=== PATIENT | male | born 1995 | race Caucasian/White ===

== ENCOUNTER 2020-05-28 14:39 | Emergency (ER) | payer OTHER, SELFPAY ==
[2020-05-28 14:42] VITALS: BP 142/73; PULSE 58; RESP 18; TEMP 36.7; O2SAT 98; BMI 28.8
--- NOTE | 2020-05-28 14:55 | USR_ITS ---
PROCEDURE INFORMATION: Exam: US Scrotum Exam date and time: 05/28/2020 2:56 PM Age: 24 years old Clinical indication: Scrotum pain; Additional info: Left testicular pain TECHNIQUE: Imaging protocol: Real-time ultrasound of the scrotum and contents with color Doppler and image documentation. COMPARISON: No relevant prior studies available. FINDINGS: Right testicle: Normal. No mass. No torsion. Normal vascular flow. Left testicle: Normal. No mass. No torsion. Normal vascular flow. Epididymides: 2 mm right epididymal head cyst. Scrotum: 3 mm left scrotal varicocele. US/US scrotum [id number] IMPRESSION: 1. There is a 3 mm left scrotal varicocele. 2. 2 mm right epididymal head cyst.
--- NOTE | 2020-05-28 15:00 | W.ED.ABDPA2 ---
HPI - Abdominal Pain General: Chief Complaint: Abdominal Pain Stated Complaint: abd pain Time Seen by Provider: 05/28/20 14:43 Source: patient History of Present Illness: HPI narrative: 24-year-old pleasant male patient presents to the emergency department with less than 2-hour onset of lower abdominal pain followed by testicular pain. He reports went to urgent care who was then referred here for further evaluation. He presents to the emergency department with his father. He denies fever chills, cough congestion. Denies nausea vomiting. He reports spontaneous onset of lower abdominal pain and testicular pain, described pain as intense. Has improved upon arrival to the ED, reports pain localized to the left testicle. He denies flank pain. Denies back pain. Denies urinary discharge or dysuria symptoms. MD elicited complaint: abdominal pain (Lower, now resolved) and other (Testicular pain) Pertinent past history: none Onset (ago): hour(s) (2) Pain Consistency: intermittent Location: Pelvis, Groin and Other (Testicular) Severity: moderate Quality: aching Radiation: suprapubic and other (Testicular) Exacerbating factors: movement Relieving factors: nothing and other (Testicular elevation, sitting down) Context: foreign travel Associated Symptoms: Denies chills, dysuria, fever(s), nausea and vomiting Review of Systems General: Reports: 10 or more systems reviewed and unremarkable except in HPI and below Const: Denies: fever(s) or chills Eyes: Denies: blurry vision or eye redness ENMT: Denies: throat pain, dental pain or disequilibrium Card: Denies: chest pain, palpitations or irregular heart rhythm Resp: Denies: dyspnea, productive cough, non-productive cough or wheezing GI: Reports: abdominal pain; Denies: nausea or vomiting : Reports: testicular pain and scrotal swelling; Denies: difficulty urinating, dysuria or urinary urgency Musc: Denies: back pain Skin/Breast: Denies: rash or pruritus Neuro: Denies: headache(s), weakness in extremities or behavioral changes Phil/Lymph: Denies: easy bruising PFSH ED PFSH: Social History Smoking and tobacco status: current every day smoker Physical Exam Const: COMMON NORMALS: no acute distress, patient oriented x3, healthy appearing and alert GENERAL APPEARANCE: cooperative, comfortable and well hydrated HENMT: COMMON NORMALS: normocephalic, Normal external nose present and moist oral mucous membranes HEAD & SCALP: normocephalic NOSE: Normal external nose present Eye: COMMON NORMALS: Equal, round and reactive pupils present and EOMs intact bilaterally GENERAL EYE: appearance normal, both eyes and all related structures PUPIL: Yes Equal, round and reactive pupils present Neck/C-Spine: COMMON NORMALS: full ROM and no lymphadenopathy GENERAL: Yes normal visual inspection and Yes trachea midline CERVICAL SPINE: Yes cervical ROM normal Lymph: LYMPHATIC: no lymphadenopathy noted Chest: COMMONS NORMALS: normal inspection of the chest Resp: COMMON NORMALS: normal respiratory effort and clear to auscultation bilaterally AUSCULTATION: clear to auscultation bilaterally Cardio: COMMON NORMALS: regular rhythm, S1 normal heart sound present, S2 normal heart sound present and Peripheral pulses 2+ throughout RHYTHM: regular rhythm HEART SOUNDS: S1 normal heart sound present and S2 normal heart sound present PERIPHERAL PULSES: Peripheral pulses 2+ throughout GI: COMMON NORMALS: Normal to inspection, nondistended, normoactive bowel sounds present and non-tender : COMMON NORMALS: Yes no CVA tenderness BLADDER/KIDNEY EXAM: Yes no CVA tenderness MALE GROIN/PERINEUM EXAM: No ecchymosis, No edema and No inguinal lymphadenopathy PENIS: normal penis, circumcised and no ecchymosis MEATUS: meatus normal, no meatla discharge and No Blood at meatus present SCROTUM: Yes testes descended bilaterally, Yes Scrotal tenderness present (Left testicle) and Yes scrotal swelling (Slightly) Scrotal swelling laterality: left TESTES: Yes testicular lie normal Back/Pelvis: COMMON NORMALS: no CVA tenderness and thoracic and lumbar spine normal to inspection Extremity: COMMON NORMALS: normal to inspection and capillary refill normal Neuro: COMMON NORMALS: patient oriented x3 and no focal motor deficits SENSORIUM/ORIENTATION: Yes alert Psych: COMMON NORMALS: mental status grossly normal, Normal thought process present and cooperative ACTIVITY/MOTOR BEHAVIOR: Yes appropriate eye contact THOUGHT PROCESS: Normal thought process present Skin: COMMON NORMALS: no rashes or lesions noted and turgor normal GENERAL SKIN EXAM: no rashes or lesions noted and turgor normal Course ED course: 24-year-old male patient presents to the emergency department with complaints of lower abdominal pain with sudden onset followed by left testicular pain. Scrotal ultrasound revealed 3 mm left scrotal varicocele with 2 mm right epididymal head cyst. CT of the abdomen without IV contrast completed due to elevation of creatinine and inability to rule out renal stone. CT of the abdomen and pelvis with colonic constipation, family and patient updated on CT scan and plan of care, agree to follow-up with primary care physician this week. Review of radiological and serology findings discussed. Vital Signs: Vital signs: Vital Signs Temperature 98.0 F 05/28/20 14:42 Pulse Rate 59 L 05/28/20 15:03 Respiratory Rate 16 05/28/20 15:03 Blood Pressure 143/72 05/28/20 15:03 Pulse Oximetry 97 05/28/20 15:03 MDM - Abdominal Pain Differential Diagnosis: Differential diagnosis abdominal pain: Likely abdominal pain, acute appendicitis and calculus of kidney Lab Data: Labs: Lab Results 05/28/20 05/28/20 05/28/20 Range/Units 15:00 15:00 16:00 WBC 9.1 (4.0-10.0) 10^3/ uL RBC 4.65 (4.1-5.3) 10^6/u L Hgb 14.5 (11.7-16.6) g/dL Hct 43.1 (42.0-52.0) % MCV 92.7 (80-94) fL MCH 31.2 (28.0-34.0) pg MCHC 33.6 (30.0-36.0) g/dL RDW 12.2 (12.1-15.1) % Plt Count 279 (130-400) 10^3/c mm MPV 10.1 (7.4-10.4) fL Neut % (Auto) 53.4 % Lymph % (Auto) 37.6 % Dewitt % (Auto) 7.6 % Eos % (Auto) 0.8 % Baso % (Auto) 0.4 % Neut # (Auto) 4.85 (1.8-7.7) 10^3/u L Lymph # (Auto) 3.4 (0.8-4.8) 10^3/u L Dewitt # (Auto) 0.7 (0.2-0.9) 10^3/u L Eos # (Auto) 0.1 (0.0-0.8) 10^3/u L Baso # (Auto) 0.0 (0.0-0.1) 10^3/u L Nucleated RBC % (a uto) 0 % Nucleated RBCs # 0.0 /100WBC Sodium 139 (136-145) mmol/L Potassium 4.6 (3.5-5.1) mmol/L Chloride 105 (98-107) mmol/L Carbon Dioxide 27 (22-29) mmol/L Anion Gap 11.6 (5-19) BUN 14 (6-20) mg/dL Creatinine 1.3 H (0.7-1.2) mg/dL GFR Calculation 69.0 L (90-130) mL/min Glucose 99 (65-115) mg/dL Calculated Osmolal ity 284 L (285-295) mOsm/k g Calcium 9.2 (8.5-10.5) mg/dL Total Bilirubin 0.5 (0.15-1.2) mg/dL AST 49 H (0-40) U/L ALT 43 H (0-41) U/L Alkaline Phosphata se 71 (40-130) IU/L Total Protein 6.9 (6.6-8.7) g/dL Albumin 4.2 (3.5-5.2) g/dL Globulin 2.7 (1.3-4.6) g/dL Urine Color Dark yellow (Yellow) Urine Appearance Clear (CLEAR) Urine pH 5 (5-7) Ur Specific Gravit y 1.025 (1.005-1.030) Urine Protein Neg (Negative) Urine Glucose (UA) Norm (Normal) Urine Ketones 1+ H (Negative) Urine Blood Neg (Negative) Urine Nitrate Negative (Negative) Urine Bilirubin Neg (NEGATIVE) Urine Urobilinogen 1 H (Negative) mg/dL Ur Leukocyte Blanca ase Negative (Negative) Imaging Data ^: US: Radiologist's impression: [place] [address] Ultrasound Report Signed Patient: Regino Ayala #: [id number] : 1995Acct#:[id number] Age/Sex: 24 / MADM Date: 05/28/20 Loc: ERRoom/Bed: Attending Dr: Ordering Provider/Ordering MD: Jaclyn Phelps Date of Service: 05/28/20 Procedure(s): US scrotum [id number] Accession Number(s): [id number] Report Number: [id number] PROCEDURE INFORMATION: Exam: US Scrotum Exam date and time: 05/28/2020 2:56 PM Age: 24 years old Clinical indication: Scrotum pain; Additional info: Left testicular pain TECHNIQUE: Imaging protocol: Real-time ultrasound of the scrotum and contents with color Doppler and image documentation. COMPARISON: No relevant prior studies available. FINDINGS: Right testicle: Normal. No mass. No torsion. Normal vascular flow. Left testicle: Normal. No mass. No torsion. Normal vascular flow. Epididymides: 2 mm right epididymal head cyst. Scrotum: 3 mm left scrotal varicocele. US/US scrotum [id number] IMPRESSION: 1. There is a 3 mm left scrotal varicocele. 2. 2 mm right epididymal head cyst. Dictated By:Carolina Goss MD CT Abd/Pel: Radiologist's impression: [place] [address] CT Scan Report Signed Patient: Regino Ayala #: [id number] : 1995Acct#:[id number] Age/Sex: 24 MAD Date: 05/28/20 Loc: ERRoom/Bed: Attending Dr: Ordering Provider/Ordering MD: Jaclyn Phelps Date of Service: 05/28/20 Procedure(s): CT kidney stone [id number] Accession Number(s): [id number] Report Number: [id number] PROCEDURE INFORMATION: Exam: CT Abdomen And Pelvis Without Contrast Exam date and time: 05/28/2020 4:13 PM Age: 24 years old Clinical indication: Abdominal pain; Left lower quadrant (llq); Patient HX: C/O lower L flank and suprapubic pain; Additional info: Lower abdominal pain TECHNIQUE: Imaging protocol: Computed tomography of the abdomen and pelvis without contrast. Radiation optimization: All CT scans at this facility use at least one of these dose optimization techniques: automated exposure control; mA and/or kV adjustment per patient size (includes targeted exams where dose is matched to clinical indication); or iterative reconstruction. COMPARISON: No relevant prior studies available. RADIATION DOSE METRICS: Total DLP (mGy-cm): 1465.52 FINDINGS: Liver: Normal. No mass. Gallbladder and bile ducts: The gallbladder is contracted. Pancreas: Normal. No ductal dilation. Spleen: Small incidental splenule. Adrenals: Normal. No mass. Kidneys and ureters: Normal. No hydronephrosis. Stomach and bowel: Colonic constipation is present. Appendix: A normal appendix is identified. Intraperitoneal space: Unremarkable. No free air. No significant fluid collection. Vasculature: Unremarkable. No abdominal aortic aneurysm. Lymph nodes: Unremarkable. No enlarged lymph nodes. Bladder: Unremarkable as visualized. Reproductive: Unremarkable as visualized. Bones/joints: Unremarkable. No acute fracture. Soft tissues: Unremarkable. CT/CT kidney stone [id number] IMPRESSION: Colonic constipation is present. Discharge Plan Discharge Patient Disposition: Home Clinical Impression: Left varicocele, Epidermoid cyst of testis Condition: Stable Prescriptions: No Action No Known Home Medications RF: 0 Discharge Orders: Discharge Order (Routine); Ordered 05/28/20 Ordered By: Jaclyn Phelps Referrals: Eyad Todd DO [Primary Care Provider] - Discharge Diet: Usual diet Discharge Activity: Limit activity as instructed Patient Instructions: Varicocele (ED), Testicle Pain (ED), Abdominal Pain (ED) Activity Restrictions/Additional Instructions: May take ibuprofen such as Advil or Tylenol [id number] as needed for discomfort Wearing tight underwear or athletic support such as jockstrap may help to support the scrotum and help pain If pain has not improved over the next several days with conservative therapy, referral to a specialist may be warranted Follow-up with your primary care provider this week Return to the emergency department if you develop worsening testicular pain, nausea vomiting, worsening abdominal pain with fever and chills, blood in your stool. Coding Level of Care Code ED [employer] for [employer] Fwd Exam Comprehensive
[2020-05-28 15:03] VITALS: BP 143/72; PULSE 59; RESP 16; O2SAT 97
[2020-05-28 15:11] LABS: Basophils % 0.4 %; Eosinophils # 0.1 10^3/uL (0.0-0.8); Eosinophils % 0.8 %; Hematocrit 43.1 % (42.0-52.0); Hemoglobin 14.5 g/dL (11.7-16.6); Lymphocytes # 3.4 10^3/uL (0.8-4.8); Lymphocytes % 37.6 %; Mean Corpuscular HGB Conc 33.6 g/dL (30.0-36.0); Mean Corpuscular Hemoglobin 31.2 pg (28.0-34.0); Mean Corpuscular Volume 92.7 fL (80-94); Mean Platelet Volume 10.1 fL (7.4-10.4); Monocytes # 0.7 10^3/uL (0.2-0.9); Monocytes % 7.6 %; Neutrophils # 4.85 10^3/uL (1.8-7.7); Neutrophils % 53.4 %; Nucleated Red Blood Cells % 0 %; Platelet Count 279 10^3/cmm (130-400); Red Blood Count 4.65 10^6/uL (4.1-5.3); Red Cell Distribution Width 12.2 % (12.1-15.1); White Blood Count 9.1 10^3/uL (4.0-10.0)
[2020-05-28 15:30] LABS: Alanine Aminotransferase 43 U/L (0-41); Albumin Level 4.2 g/dL (3.5-5.2); Alkaline Phosphatase 71 IU/L (40-130); Anion Gap 11.6 (5-19); Aspartate Amino Transferase 49 U/L (0-40); Blood Urea Nitrogen 14 mg/dL (6-20); Calcium 9.2 mg/dL (8.5-10.5); Carbon Dioxide 27 mmol/L (22-29); Chloride 105 mmol/L (98-107); Globulin 2.7 g/dL (1.3-4.6); Glucose 99 mg/dL (65-115); Osmolality Calculated 284 mOsm/kg (285-295); Potassium 4.6 mmol/L (3.5-5.1); Sodium 139 mmol/L (136-145); Total Bilirubin 0.5 mg/dL (0.15-1.2); Total Protein 6.9 g/dL (6.6-8.7)
--- NOTE | 2020-05-28 15:44 | CTR_ITS ---
PROCEDURE INFORMATION: Exam: CT Abdomen And Pelvis Without Contrast Exam date and time: 05/28/2020 4:13 PM Age: 24 years old Clinical indication: Abdominal pain; Left lower quadrant (llq); Patient HX: C/O lower L flank and suprapubic pain; Additional info: Lower abdominal pain TECHNIQUE: Imaging protocol: Computed tomography of the abdomen and pelvis without contrast. Radiation optimization: All CT scans at this facility use at least one of these dose optimization techniques: automated exposure control; mA and/or kV adjustment per patient size (includes targeted exams where dose is matched to clinical indication); or iterative reconstruction. COMPARISON: No relevant prior studies available. RADIATION DOSE METRICS: Total DLP (mGy-cm): 1465.52 FINDINGS: Liver: Normal. No mass. Gallbladder and bile ducts: The gallbladder is contracted. Pancreas: Normal. No ductal dilation. Spleen: Small incidental splenule. Adrenals: Normal. No mass. Kidneys and ureters: Normal. No hydronephrosis. Stomach and bowel: Colonic constipation is present. Appendix: A normal appendix is identified. Intraperitoneal space: Unremarkable. No free air. No significant fluid collection. Vasculature: Unremarkable. No abdominal aortic aneurysm. Lymph nodes: Unremarkable. No enlarged lymph nodes. Bladder: Unremarkable as visualized. Reproductive: Unremarkable as visualized. Bones/joints: Unremarkable. No acute fracture. Soft tissues: Unremarkable. CT/CT kidney stone [id number] IMPRESSION: Colonic constipation is present. Radiation Dose CTDIVOL = (mGy): DLP = 1465.52 (mGy-cm)
[2020-05-28 16:07] LABS: Add Urine Microscopic? NO
[2020-05-28] MEDS: sodium chloride 0.9% 500 ML 999 ML IV (16:11)
[2020-05-28 16:27] LABS: Bilirubin Urine Neg (NEGATIVE); Blood Urine Neg (Negative); Glucose Urine UA Norm (Normal); Ketones Urine 1+ (Negative); Leukocyte Esterase Urine Negative (Negative); Nitrate Urine Negative (Negative); Protein Urine Neg (Negative); Specific Gravity, Urine 1.025 (1.005-1.030); Urine Appearance Clear (CLEAR); Urine Color Dark Yellow (Yellow); Urobilinogen Urine 1 mg/dL (Negative); pH Urine 5 (5-7)
== END 2020-05-28 16:46 | disposition home or self-care (01) ==
PROVIDERS: Emergency Provider Nurse Practitioner Family; PCP Family Medicine
DX: I86.1 Scrotal varices (principal); N50.89 Other specified disorders of the male genital organs; F17.210 Nicotine dependence, cigarettes, uncomplicated
CPT/HCPCS: 12345; 74176; 76870; 80053; 81003; 85025; 99283; J7040

== ENCOUNTER → 2023-08-09 11:51 | Outpatient (BNVA) | payer OTHER, SELFPAY | PROVIDERS: PCP Family Medicine; Visit Provider Family Medicine | DX: Z72.51 High risk heterosexual behavior (principal); Z71.1 Person with feared health complaint in whom no diagnosis is made | CPT/HCPCS: 87491; 87591; 87806 ==

== ENCOUNTER 2024-05-07 10:32 | Emergency (ER) | payer SELFPAY ==
--- NOTE | 2024-05-07 11:01 | CT_ITS ---
WS: [id number] CT NECK WITH CONTRAST HISTORY: L WINDOWS SYSTEMS ARCHITECT TECHNIQUE: Contiguous 2 mm axial images are performed through the neck with intravenous contrast. Sag ittal and coronal reformats are also submitted. All CT scans at [facility] use at least one o f these dose optimization techniques: automated exposure control; mA and/or kV adjustment per patient size (includes targeted exams where dose is matched to clinical indication); or iterative reconstruc tion. CONTRAST: CONTRAST: Omnipaque 350; 100 mL IV. DLP: 357.01 mGy.cm COMPARISON: None available. There is significant soft tissue edema and prominence beginning at the posterior nasopharynx and exte nding contiguously through the tonsillar beds to the level of the vocal cord. Markedly enlarged adeno id tissue also. Slightly greater soft tissue thickening and edema on the LEFT. There is an area of ve ry subtle decreased attenuation in the LEFT [place] tonsil measuring 1.7 x 2.2 cm. No lucent centere d at this time but this is consistent with a developing abscess. There is also slight midline shift o f the oropharynx. There is mild narrowing but no high-grade stenosis. Numerous small cervical chain lymph nodes. Some of these lymph nodes are enlarged measuring up to 1.7 cm on the LEFT. Some of these lymph nodes are hyperemic greatest on the LEFT. No osseous abnormalities. Visualized portions of the skull base demonstrate no abnormalities. Orbits and globes are within norm al limits. No soft tissue masses. Visualized paranasal sinuses and mastoid air cells are normal. There are few scattered areas of groundglass attenuation, greatest in the RIGHT upper lobe consistent with mild pneumonitis. CT/CT neck w con* [id number] IMPRESSION: 1. Edematous enlarged nasopharyngeal and parapharyngeal soft tissues including the tonsils/peritonsillar tissues, greatest on the LEFT. Phlegmon within the L EFT [place] tonsil measures 1.7 x 2.2 cm. Mild narrowing of the oropharyngeal airway. 2. Bilateral cervical chain lymphadenopathy, greatest on the LEFT. Notified ELIAS Maher at 05/07/2024 11:35 AM.
--- NOTE | 2024-05-07 11:02 | ED_ITS ---
HPI - General Adult 2 General: Chief complaint: Upper Respiratory Infection Stated complaint: sent from u/c swelling throat Time Seen by Provider: 05/07/24 10:34 Source: patient Mode of arrival: ambulatory Limitations: no limitations History of Present Illness: Patient is a nice 28-year-old male who presents to the ED today from the walk-in clinic for evaluation of a peritonsillar abscess. Patient states approximately 2 weeks ago he was diagnosed with strep and placed on amoxicillin. He states he finished a 10-day course of this. He states while on antibiotics and after completion he felt like symptoms were gone/completely improved however he states 2 days after finishing the 10-day course he began noticing throat pain again as well as swelling. He is able to control his secretions. He was able to eat and drink yesterday evening but has not ate or drink anything today. He is not running fevers. He is having a muffled voice. Onset (ago): day(s) Severity: moderate Quality: constant Pain Consistency: constant Relieving factors: none Exacerbating factors: other (swallowing) Associated symptoms: Deny headache(s), malaise or rash Treatments prior to arrival: none Review of Systems 2 Const: Denies: fever(s), chills, body aches, fatigue or malaise ENMT: Reports: throat pain, uvular edema and odynophagia; Denies: swelling of lips/tongue, nasal discharge, nasal congestion or sinus pain Musc: Denies: neck pain Skin/Breast: Denies: rash Neuro: Denies: headache(s) PFSH ED 2 PFSH: Social History Smoking and tobacco/nicotine status: current some day tobacco/nicotine user Physical Exam 2 Const: COMMON NORMALS: no acute distress, average body habitus, patient oriented x3, no limitations, healthy appearing, alert and well nourished G ENERAL APPEARANCE: cooperative ORIENTATION/CONSCIOUSNESS: Yes awake, Yes oriented to person, Yes oriented to place and Yes oriented to time HENMT: FACE & SINUS: normal facial exam MOUTH: Normal oral and palatal mucosa present and lip normal TEETH & GINGIVA: Yes fair dentition THROAT: abnormal tonsil, peritonsillar mass left, posterior oropharynx abnormal edema and erythema, uvula laterally displaced and uvular edema OTHER: muffled hot potato voice, no drooling Eye: GENERAL EYE: appearance normal, both eyes and all related structures Neck/C-Spine: COMMON NORMALS: no lymphadenopathy GENERAL: Yes normal visual inspection, No anterior neck swelling and No submandibular swelling Resp: COMMON NORMALS: normal respiratory effort and clear to auscultation bilaterally AUSCULTATION: clear to auscultation bilaterally Cardio: COMMON NORMALS: regular rate and regular rhythm RATE: regular rate RHYTHM: regular rhythm Extremity: GENERAL: Yes normal exam except as noted Neuro: COMMON NORMALS: patient oriented x3 and CN's II-XII intact bilaterally SENSORIUM/ORIENTATION: Yes alert, Yes oriented to person, Yes oriented to place and Yes oriented to time Skin: COMMON NORMALS: no rashes or lesions noted GENERAL SKIN EXAM: no rashes or lesions noted Course 2 Consultations: Consultation #1: Dr. Medrano-[facility]-recommends oral doxy and will follow up early next week Vital Signs: Vital signs: Vital Signs Temperature 98.6 F 05/07/24 11:28 Pulse Rate 72 05/07/24 11:28 Respiratory Rate 16 05/07/24 11:28 Blood Pressure 144/88 05/07/24 11:28 Pulse Oximetry 98 05/07/24 11:28 MDM - General Adult Medical Decision Making Patient is controlling his secretions. He has been able to eat and drink. He arrives in no acute distress with stable vital signs. Patient has a developing left peritonsillar abscess. Nothing at this time that is amendable to incision and drainage. I have spoken to Dr. Medrano through [facility] as we do not have ENT coverage on-call today. He recommends placing patient on oral Doxycycline and their office will follow-up with him early next week. Patient was given strict return precautions. Patient was given IM Clindamycin and Decadron prior to discharge. Medical Records I reviewed the patient's medical records. Lab Data I reviewed the patient's lab results. 05/07/24 11:27 05/07/24 11:[address] 05/07/24 11:01 IMPRESSION: 1. Edematous enlarged nasopharyngeal and parapharyngeal soft tissues including the tonsils/peritonsillar tissues, greatest on the LEFT. Phlegmon within the LEFT [place] tonsil measures 1.7 x 2.2 cm. Mild narrowing of the oropharyngeal airway. 2. Bilateral cervical chain lymphadenopathy, greatest on the LEFT. Notified ELIAS Maher at 05/07/2024 11:35 AM. Laboratory Results WBC 15.55 10^3/uL (3.29-11.43) H 05/07/24 11:27 RBC 5.34 10^6/uL (3.85-5.65) 05/07/24 11:27 Hgb 16.70 g/dL (11.27-16.99) 05/07/24 11:27 Hct 48.4 % (37-53) 05/07/24 11:27 MCV 90.6 fl (82-101) 05/07/24 11: MCH 31.3 pg (27-33) 05/07/24 11: MCHC 34.5 g/dL (30-55) 05/07/24 11: RDW 12.0 % (12.1-15.1) L 05/07/24 11:27 Plt Count 328 10^3/cmm (157-399) 05/07/24 11:27 MPV 10.0 fL (7.4-10.4) 05/07/24 11: Neut % (Auto) 72.7 % 05/07/24 11:27 Lymph % (Auto) 19.0 % 05/07/24 11:27 Kleberg % (Auto) 7.5 % 05/07/24 11: Eos % (Auto) 0.1 % 05/07/24 11: Baso % (Auto) 0.3 % 05/07/24 11:27 Neut # (Auto) 11.30 10^3/uL (1.8-7.7) H 05/07/24 11:27 Lymph # (Auto) 3.0 10^3/uL (0.8-4.8) 05/07/24 11:27 Kleberg # (Auto) 1.2 10^3/uL (0.2-0.9) H 05/07/24 11:27 Eos # (Auto) 0.0 10^3/uL (0.0-0.8) 05/07/24 11:27 Baso # (Auto) 0.1 10^3/uL (0.0-0.1) 05/07/24 11:27 Nucleated RBC % (auto) 0 % 05/07/24 11:27 Nucleated RBCs # 0.0 /100WBC 05/07/24 11:27 Sodium 138 mmol/L (136-145) 05/07/24 11:27 Potassium 4.0 mmol/L (3.5-5.1) 05/07/24 11:27 Chloride 100 mmol/L (98-107) 05/07/24 11:27 Carbon Dioxide 26 mmol/L (22-29) 05/07/24 11:27 Anion Gap 16.0 (5-19) 05/07/24 11:27 BUN 12 mg/dL (6-20) 05/07/24 11:27 Creatinine 1.1 mg/dL (0.7-1.2) 05/07/24 11:27 GFR Calculation 80.9 mL/min (90-130) L 05/07/24 11:27 Glucose 97 mg/dL (65-115) 05/07/24 11:27 Calculated Osmolality 286 mOsm/kg (285-295) 05/07/24 11:27 Calcium 9.5 mg/dL (8.5-10.5) 05/07/24 11:27 Total Bilirubin 0.8 mg/dL (0.15-1.2) 05/07/24 11:27 AST 21 U/L (0-40) 05/07/24 11:27 ALT 28 U/L (0-41) 05/07/24 11:27 Alkaline Phosphatase 97 U/L (40-130) 05/07/24 11:27 Total Protein 8.8 g/dL (6.6-8.7) H 05/07/24 11:27 Albumin 4.5 g/dL (3.5-5.2) 05/07/24 11:27 Globulin 4.3 g/dL (1.3-4.6) 05/07/24 11:27 All radiology interpretation(s) finalized by discharge Discharge Plan Discharge Patient Disposition: Home Clinical Impression: Peritonsillar abscess Condition: Stable Prescriptions: New doxycycline monohydrate 100 mg capsule 100 mg PO Q12H 10 Days Qty: 20 0RF Discharge Orders: Discharge ED (Routine); Ordered 05/07/24 Ordered By: Dory Hawkins Referrals: Eyad Todd DO [Primary Care Provider] - Patient Instructions: Peritonsillar Abscess (DC), Peritonsillar Abscess - Adult Activity Restrictions/Additional Instructions: As we discussed I have spoken to Dr. Medrano through [facility] who would like to follow up with you early next week. Please call their office early Friday morning to schedule an appointment. As we discussed you need to return to the emergency department for worsening throat swelling, difficulty eating or drinking, difficulty breathing or controlling your saliva/secretions, or any other concerns you may have. [facility] Facial Plastic Surgery-Dr. Medrano [address] [place] [id number] Coding Level of Care Code ED [employer] for Ernestine Kemp
[2024-05-07] MEDS: iohexol 350 mg/mL 500 mL Btl (per mL) IV (11:20)
[2024-05-07 11:28] VITALS: BP 144/88; PULSE 72; RESP 16; TEMP 37; O2SAT 98; BMI 30.6
[2024-05-07 11:37] LABS: Basophils # 0.1 10^3/uL (0.0-0.1); Basophils % 0.3 %; Eosinophils % 0.1 %; Hematocrit 48.4 % (37-53); Mean Corpuscular HGB Conc 34.5 g/dL (30-55); Mean Corpuscular Hemoglobin 31.3 pg (27-33); Mean Corpuscular Volume 90.6 fl (82-101); Monocytes # 1.2 10^3/uL (0.2-0.9); Monocytes % 7.5 %; Neutrophils % 72.7 %; Nucleated Red Blood Cells % 0 %; Platelet Count 328 10^3/cmm (157-399); Red Blood Count 5.34 10^6/uL (3.85-5.65); White Blood Count 15.55 10^3/uL (3.29-11.43)
[2024-05-07] MEDS: dexamethasone 10 mg/mL INJ IVP (11:40)
[2024-05-07] MEDS: clindamycin 600 MG/50 ML PREMIX 100 MG IV (11:42)
[2024-05-07 11:57] LABS: Alanine Aminotransferase 28 U/L (0-41); Albumin Level 4.5 g/dL (3.5-5.2); Alkaline Phosphatase 97 U/L (40-130); Aspartate Amino Transferase 21 U/L (0-40); Blood Urea Nitrogen 12 mg/dL (6-20); Calcium 9.5 mg/dL (8.5-10.5); Carbon Dioxide 26 mmol/L (22-29); Chloride 100 mmol/L (98-107); Creatinine Clr Calc Pharmacy 129.5932; Globulin 4.3 g/dL (1.3-4.6); Glomerular Filtration Rate 80.9 mL/min (90-130); Glucose 97 mg/dL (65-115); Osmolality Calculated 286 mOsm/kg (285-295); Sodium 138 mmol/L (136-145); Total Bilirubin 0.8 mg/dL (0.15-1.2); Total Protein 8.8 g/dL (6.6-8.7)
[2024-05-07 12:35] VITALS: BP 152/94; PULSE 77; O2SAT 98
== END 2024-05-07 12:37 | disposition home or self-care (01) ==
PROVIDERS: Emergency Provider Physician Assistant; PCP Family Medicine
DX: J36 Peritonsillar abscess (principal); Z72.0 Tobacco use
CPT/HCPCS: 70491; 80053; 85025; 87070; 87880; 96365; 96375; 99285; J1100; J3490; Q9967